=== PATIENT | female | born 1965 | race Caucasian/White ===

== ENCOUNTER 2021-05-06 10:11 | Outpatient (CLI) | payer OTHER, SELFPAY ==
--- NOTE | 2021-05-06 10:19 | MM_ITS ---
WS: [id number] Bilateral screening digital mammogram, 05/06/2021 Clinical Data: SCREENING Comparison: 04/18/2017, 03/24/2017, 03/15/2017, 05/15/2008, 06/03/2008. Findings: The breast parenchymal pattern shows extreme density No spiculated masses or clustered calcifications are seen. There are no secondary signs of carcinoma. MM/[id number] Impression: 1. Negative bilateral mammogram unchanged. 2. Recommend annual screening mammograms. BIRADS: 1-Negative FOLLOW UP: 1 Year Follow-up The CAD dead mail checker was used.
== END 2021-05-06 10:12 | disposition home or self-care (01) ==
LOC: RADSHAW 10:18
PROVIDERS: PCP Family Medicine; Visit Provider Family Medicine
DX: Z12.31 Encounter for screening mammogram for malignant neoplasm of breast (principal)
CPT/HCPCS: 77067